=== PATIENT | male | born 1960 | race African-American/Black ===

== ENCOUNTER 2024-05-19 17:30 | Inpatient (IN) | payer OTHER ==
[2024-05-19 18:20] VITALS: BMI 29.5
[2024-05-19] MEDS ORDERED: guaiFENesin 600 MG TABLET.ER (FP) PO PRN (20:54)
[2024-05-19] MEDS ORDERED: DICYCLOMINE HCL 10 MG CAPSULE PO PRN (20:54)
[2024-05-19] MEDS ORDERED: MAG HYDROX/AL HYDROX/SIMETH 30 ML UNIT-DOSE CUP PO PRN (20:54)
[2024-05-19] MEDS ORDERED: NALOXONE HCL 0.4 MG/ML VIAL IM PRN (20:54)
[2024-05-19] MEDS ORDERED: BENZONATATE 200 MG CAPSULE PO PRN (20:54)
[2024-05-19] MEDS ORDERED: ACETAMINOPHEN 325 MG TABLET (FP) PO PRN (20:54)
[2024-05-19] MEDS ORDERED: LOPERAMIDE HCL 2 MG CAPSULE PO PRN (20:54)
[2024-05-19] MEDS ORDERED: ONDANSETRON *ODT* 4 MG TABLET SL PRN (20:54)
[2024-05-19] MEDS ORDERED: BENZOCAINE/MENTHOL (CHLORASEPTIC ) LOZENGE MM PRN (20:54)
[2024-05-19] MEDS ORDERED: NALOXONE (NARCAN) HCL 4 MG/0.1 ML SPRAY NS PRN (20:54)
[2024-05-19] MEDS ORDERED: POLYETHYLENE GLYCOL (HEALTHYLAX) 3350 17 GM PACKET PO PRN (20:54)
[2024-05-19] MEDS ORDERED: BISMUTH SUBSALICYLATE 524 MG/30 ML PO PRN (20:54)
[2024-05-19] MEDS ORDERED: METHOCARBAMOL 500 MG TABLET PO PRN (20:54)
[2024-05-19] MEDS ORDERED: hydrOXYzine PAMOATE 25 MG CAPSULE (FP) PO PRN (20:54)
[2024-05-19] MEDS ORDERED: MAGNESIUM HYDROX 2400MG/30ML ORAL SUSPENSION 30 ML CUP PO PRN (20:54)
[2024-05-19] MEDS ORDERED: IBUPROFEN 400 MG TABLET (FP) PO PRN (20:54)
[2024-05-20] MEDS: THIAMINE 100 MG TABLET PO SCH (02:51)
[2024-05-20] MEDS ORDERED: MELATONIN 5 MG TABLETS ONE (02:51)
[2024-05-20] MEDS: MELATONIN 5 MG TABLETS PO SCH (02:51)
[2024-05-20] MEDS ORDERED: TUBERCULIN PPD 5 TU/0.1ML VIAL ID ONE (05:00)
[2024-05-20] MEDS ORDERED: IBUPROFEN 600 MG TABLET (FP) PO ONE (06:01)
[2024-05-20] MEDS: IBUPROFEN 600 MG TABLET (FP) PO PRN (06:03)
[2024-05-20] MEDS ORDERED: amLODIPine BESYLATE 5 MG TABLET (FP) ONE (10:41)
[2024-05-20] MEDS ORDERED: ASPIRIN 81 MG CHEWABLE TABLETS ONE (10:41)
[2024-05-20] MEDS ORDERED: PRENATAL VITAMINS W/ FOLIC ACID TABLET (FP) PO ONE (10:42)
[2024-05-20] MEDS: PRENATAL VITAMINS W/ FOLIC ACID TABLET (FP) PO SCH (10:43)
[2024-05-20] MEDS: ASPIRIN 81 MG CHEWABLE TABLETS PO SCH (10:43)
[2024-05-20] MEDS: amLODIPine BESYLATE 5 MG TABLET (FP) PO SCH (10:43)
[2024-05-20 11:15] LABS: HEMATOCRIT 37.1 % (35.4-49); HEMOGLOBIN 12.2 GM/dL (11.7-16.9); MCH 28.4 pg (25.7-33.7); MCHC 32.9 g/dl (32.0-35.9); MEAN CELL VOLUME 86.3 fl (80-96); MEAN PLT VOLUME 7.7 fl (7.5-11.1); PLATELET COUNT 318 10^3/uL (134-434); RDW 14.6 % (11.9-15.9); WHITE BLOOD COUNT 6.8 K/mm3 (4.0-10.0)
[2024-05-20 11:20] LABS: CHLORIDE 104 mmol/L (98-107); POTASSIUM 3.7 mmol/L (3.5-5.1); SODIUM 140 mmol/L (136-145)
[2024-05-20 11:27] LABS: ALBUMIN 3.8 g/dl (3.4-5.0); BLOOD UREA NITROGEN 15.8 mg/dL (7-18); GLUCOSE,RANDOM 136 mg/dL (74-106)
[2024-05-20 11:28] LABS: CALCIUM 9.3 mg/dL (8.5-10.1)
[2024-05-20 11:29] LABS: ANION GAP 6 mmol/L (4-13); CO2 30 mmol/L (21-32)
[2024-05-20 11:30] LABS: CREATININE 1.1 mg/dL (0.55-1.3); SGOT/AST 35 U/L (15-37)
[2024-05-20 11:31] LABS: SGPT/ALT 33 U/L (13-61)
[2024-05-20 11:32] LABS: BILIRUBIN,TOTAL 0.3 mg/dL (0.2-1)
[2024-05-20 11:33] LABS: ALK PHOS 86 U/L (45-117)
[2024-05-20] MEDS: ATORVASTATIN CA 10 MG TABLET (FP) PO SCH (22:44)
[2024-05-21 09:41] VITALS: BP 118/68; PULSE 75; RESP 16; TEMP 97.3
== END 2024-05-21 10:07 | disposition home or self-care (01) | DRG 774 ==
LOC: YASAS 17:30 → Y6N 05-20 11:08
PROVIDERS: ADMIT Allergy & Immunology; ATTEND Surgery
PROC: HZ2ZZZZ Detoxification Services for Substance Abuse Treatment (ICD-10-PCS; principal; 2024-05-20)
DX: F10.230 Alcohol dependence with withdrawal, uncomplicated (principal); F14.20 Cocaine dependence, uncomplicated; F42.9 Obsessive-compulsive disorder, unspecified; F17.210 Nicotine dependence, cigarettes, uncomplicated; E78.5 Hyperlipidemia, unspecified; I10 Essential (primary) hypertension; I69.851 Hemiplegia and hemiparesis following other cerebrovascular disease affecting right dominant side
CPT/HCPCS: 36415; 80053; 80305; 80307; 85027; 86780; 93005; 93010

== ENCOUNTER 2024-07-18 16:38 | Inpatient (IN) | payer OTHER ==
[2024-07-18 17:36] VITALS: BMI 29.8
[2024-07-18] MEDS ORDERED: LOPERAMIDE HCL 2 MG CAPSULE PO PRN (20:30)
[2024-07-18] MEDS ORDERED: NICOTINE POLACRILEX 2 MG LOZENGE BC PRN (20:30)
[2024-07-18] MEDS ORDERED: MAGNESIUM HYDROX 2400MG/30ML ORAL SUSPENSION 30 ML CUP PO PRN (20:30)
[2024-07-18] MEDS ORDERED: BACLOFEN 10 MG TABLET (FP) PO PRN (20:30)
[2024-07-18] MEDS ORDERED: DICYCLOMINE HCL 10 MG CAPSULE PO PRN (20:30)
[2024-07-18] MEDS ORDERED: P-EPHED 60MG/TRIPROLIDI 2.5MG TABLET PO PRN (20:30)
[2024-07-18] MEDS ORDERED: guaiFENesin 600 MG TABLET.ER (FP) PO PRN (20:30)
[2024-07-18] MEDS ORDERED: MAG HYDROX/AL HYDROX/SIMETH 30 ML UNIT-DOSE CUP PO PRN (20:30)
[2024-07-18] MEDS ORDERED: ONDANSETRON *ODT* 4 MG TABLET SL PRN (20:30)
[2024-07-18] MEDS ORDERED: BISMUTH SUBSALICYLATE 524 MG/30 ML PO PRN (20:30)
[2024-07-18] MEDS ORDERED: BENZOCAINE/MENTHOL (CHLORASEPTIC ) LOZENGE MM PRN (20:30)
[2024-07-18] MEDS ORDERED: IBUPROFEN 400 MG TABLET (FP) PO PRN (20:30)
[2024-07-18] MEDS ORDERED: POLYETHYLENE GLYCOL (HEALTHYLAX) 3350 17 GM PACKET PO PRN (20:30)
[2024-07-18] MEDS ORDERED: BENZONATATE 200 MG CAPSULE PO PRN (20:30)
[2024-07-18] MEDS ORDERED: IBUPROFEN 600 MG TABLET (FP) PO PRN (20:30)
[2024-07-18] MEDS ORDERED: NICOTINE POLACRILEX 2 MG GUM BUC PRN (20:30)
[2024-07-18] MEDS ORDERED: hydrOXYzine PAMOATE 25 MG CAPSULE (FP) PO PRN (20:30)
[2024-07-18] MEDS ORDERED: ACETAMINOPHEN 325 MG TABLET (FP) PO PRN (20:30)
[2024-07-18] MEDS: MELATONIN 5 MG TABLETS PO SCH (22:55)
[2024-07-18] MEDS: THIAMINE 100 MG TABLET PO SCH (22:55)
[2024-07-19 09:23] LABS: HEMATOCRIT 36.3 % (35.4-49); HEMOGLOBIN 12.2 GM/dL (11.7-16.9); MCH 28.8 pg (25.7-33.7); MCHC 33.7 g/dl (32.0-35.9); MEAN CELL VOLUME 85.7 fl (80-96); MEAN PLT VOLUME 7.8 fl (7.5-11.1); PLATELET COUNT 227 10^3/uL (134-434); RBC 4.23 M/mm3 (4.00-5.60); RDW 14.4 % (11.9-15.9); WHITE BLOOD COUNT 6.3 K/mm3 (4.0-10.0)
[2024-07-19 09:28] LABS: POTASSIUM 3.5 mmol/L (3.5-5.1)
[2024-07-19 09:35] LABS: ALBUMIN 3.6 g/dl (3.4-5.0)
[2024-07-19 09:36] LABS: CALCIUM 8.7 mg/dL (8.5-10.1)
[2024-07-19 09:39] LABS: CREATININE 0.9 mg/dL (0.55-1.3)
[2024-07-19 09:40] LABS: BILIRUBIN,TOTAL 0.4 mg/dL (0.2-1); TOT PROT 6.5 g/dl (6.4-8.2)
[2024-07-19] MEDS: PRENATAL VITAMINS W/ FOLIC ACID TABLET (FP) PO SCH (10:06)
[2024-07-19] MEDS: SILVER SULFADIAZINE 1% TOP CREAM 50 GM JAR TP SCH (14:34)
[2024-07-20 13:10] VITALS: BP 148/82; PULSE 60; RESP 16; TEMP 98.5
== END 2024-07-20 13:00 | disposition other institution (70) | DRG 774 ==
LOC: YASAS 16:38 → Y6N 21:00
PROVIDERS: ADMIT Allergy & Immunology; ATTEND Surgery
PROC: HZ2ZZZZ Detoxification Services for Substance Abuse Treatment (ICD-10-PCS; principal; 2024-07-18)
DX: F10.230 Alcohol dependence with withdrawal, uncomplicated (principal); F14.20 Cocaine dependence, uncomplicated; F12.20 Cannabis dependence, uncomplicated; F17.210 Nicotine dependence, cigarettes, uncomplicated; F32.A Depression, unspecified; E78.5 Hyperlipidemia, unspecified; I10 Essential (primary) hypertension; I69.851 Hemiplegia and hemiparesis following other cerebrovascular disease affecting right dominant side
CPT/HCPCS: 36415; 80053; 80305; 85027